=== PATIENT | male | born 1945 | race Caucasian/White ===

== ENCOUNTER 2021-07-10 11:17 | Outpatient (CLI) | payer MEDICARE, OTHER | END 2021-07-10 11:18 | disposition home or self-care (01) | LOC: BICRAD 11:17 | PROVIDERS: ATTEND Internal Medicine Cardiovascular Disease | DX: J44.9 Chronic obstructive pulmonary disease, unspecified (principal); J90 Pleural effusion, not elsewhere classified | CPT/HCPCS: 71046 ==

== ENCOUNTER 2023-12-07 12:48 | Day surgery (SDC) | payer MEDICARE, OTHER ==
[2023-12-04 12:35] VITALS: BMI 27.9
[2023-12-07] MEDS ORDERED: Etomidate 40 MG (20 mL) VIAL ONE (13:32)
[2023-12-07 13:44] LABS: #Basophils 0.2 thou/uL (0.0-0.2); #Eosinphils 0.3 thou/uL (0.0-0.7); #Monocytes 0.7 thou/uL (0.11-0.59); #Neutrophils 8.2 thou/uL (1.40-6.50); %Basophils 1.4 % (0.0-1.0); %Eosinophils 2.9 % (0.0-10.0); %Lymphocytes 12.3 % (21.0-51.0); %Monocytes 6.6 % (0.0-10.0); %Neutrophils 76.2 % (42.0-75.0); Hematocrit 33.1 % (42.0-52.0); Hemoglobin 9.4 g/dL (14.0-18.0); Mean Corpuscular HGB CONC 28.4 g/dL (32.0-36.0); Mean Corpuscular Hemoglobin 23.3 pg (27.0-31.0); Mean Corpuscular Volume 81.9 fl (78.0-98.0); Mean Platelet Volume 11.8 fL (7.4-10.4); Platelet Count 181 10x3/uL (130-400); RBC Distribution Width 18.8 % (11.5-14.5); Red Blood Cell (RBC) Count 4.04 mill/uL (4.70-6.10); White Blood Cell (WBC) Count 10.7 10x3/uL (4.8-10.8)
[2023-12-07] MEDS ORDERED: PROPOFOL 200 MG/20 ML VIAL ONE (13:53)
[2023-12-07 13:56] LABS: INR-International Normal Ratio 1.5; Prothrombin Time 18.5 sec (12.0-14.7)
[2023-12-07 13:57] LABS: PTT 59.1 sec (22.9-36.1)
[2023-12-07 14:06] LABS: Anion Gap 14 mmol/L (10-20); BUN (Urea Nitrogen) 36 mg/dL (8.4-25.7); Calc. Creatinine Clearance 53 mL/min (70-130); Carbon Dioxide 24 mmol/L (23-31); Chloride 101 mmol/L (98-107); Estimated GFR 49; Glucose 146 mg/dL (83-110); Potassium 3.5 mmol/L (3.5-5.1); Sodium 135 mmol/L (136-145)
[2023-12-07 14:09] LABS: Anisocytosis SLIGHT = 6-15 cells HPF (0-5); CellaVision Operator ID LAB.MJL; Hypochromia SLIGHT = 6-15 cells HPF (0-5); Ovalocytes SLIGHT = 2-5 cells HPF (0-1); Platelet Adequacy Comment Platelets Normal; Poikilocytosis SLIGHT = 6-15 cells HPF (0-5); Polychromasia MODERATE = 3-4 cells HPF (0-2); Tear Drops SLIGHT = 2-5 cells HPF (0-1)
== END 2023-12-07 15:00 | disposition home or self-care (01) ==
LOC: SDC 12:48
PROVIDERS: ATTEND Internal Medicine Cardiovascular Disease
PROC: B24BZZZ Ultrasonography of Heart with Aorta (ICD-10-PCS; principal; 2023-12-07)
DX: I48.0 Paroxysmal atrial fibrillation (principal); I25.10 Atherosclerotic heart disease of native coronary artery without angina pectoris; I12.9 Hypertensive chronic kidney disease with stage 1 through stage 4 chronic kidney disease, or unspecified chronic kidney disease; N18.30 Chronic kidney disease, stage 3 unspecified; I31.1 Chronic constrictive pericarditis; E11.9 Type 2 diabetes mellitus without complications; J44.9 Chronic obstructive pulmonary disease, unspecified; Z79.82 Long term (current) use of aspirin; Z79.899 Other long term (current) drug therapy; Z79.84 Long term (current) use of oral hypoglycemic drugs; Z79.4 Long term (current) use of insulin; Z79.01 Long term (current) use of anticoagulants; Z86.16 Personal history of COVID-19
CPT/HCPCS: 36416; 80048; 85025; 85610; 85730; 92960; 93005; 93010; 93312; J1642; J2704

== ENCOUNTER 2024-01-22 | Day surgery (SDC) | payer MEDICARE, OTHER | END 2024-01-22 10:58 | disposition home or self-care (01) | PROC: 5A2204Z Restoration of Cardiac Rhythm, Single (ICD-10-PCS; principal; 2024-01-22) | PROC: B246ZZ4 Ultrasonography of Right and Left Heart, Transesophageal (ICD-10-PCS; 2024-01-22) | DX: I48.20 Chronic atrial fibrillation, unspecified (principal) ==

== ENCOUNTER 2024-05-05 12:00 | Inpatient (IN) | payer MEDICARE ==
[2024-05-05 12:20] VITALS: BMI 26.2
[2024-05-05 13:10] LABS: Hematocrit 37.6 % (38.8-50.0); Hemoglobin 11.9 g/dL (13.5-17.5); Mean Corpuscular HGB CONC 31.6 g/dL (32.0-36.0); Mean Corpuscular Hemoglobin 28.9 pg (27.0-33.0); Mean Corpuscular Volume 91.3 fL (81.2-95.1); Mean Platelet Volume 12.9 fL (7.4-10.4); Platelet Count 128 10x3/uL (150-450); RBC Distribution Width 15.9 % (11.5-14.5); Red Blood Cell (RBC) Count 4.12 10x6/uL (4.32-5.72); White Blood Cell (WBC) Count 9.9 10x3/uL (3.5-10.5)
[2024-05-05 13:13] LABS: Bilirubin Neg (Negative); Blood, Urine 150 (Negative); Clarity Clear (Clear); Glucose, Urine (Dipstick) >=1000 mg/dL (Negative); Ketone, Urine Negative (Negative); Leukocyte Negative (Negative); Nitrite Negative (Negative); Protein, Urine (Dipstick) 100 mg/dl (Neg-Trace); pH, Urine 6.5 (5.0-9.0)
[2024-05-05 13:21] LABS: INR-International Normal Ratio 1.3; PTT 33.9 sec (22.0-33.0); Prothrombin Time 13.8 sec (9.5-12.1)
[2024-05-05 13:23] LABS: Anion Gap 14 mmol/L (10-20); BUN (Urea Nitrogen) 30 mg/dL (8.4-25.7); Calc. Creatinine Clearance 50 mL/min (70-130); Calcium 9.1 mg/dL (7.8-10.44); Carbon Dioxide 27 mmol/L (23-31); Chloride 101 mmol/L (98-107); Estimated GFR 49; Glucose 163 mg/dL (83-110); Potassium 3.2 mmol/L (3.5-5.1); Sodium 139 mmol/L (136-145)
[2024-05-11] MEDS ORDERED: Ondansetron PF 4 MG/2 ML Vial ONE (14:07)
[2024-05-11] MEDS ORDERED: Rocuronium Bromide 10 MG/ML (10ML VIAL) ONE (14:07)
[2024-05-11] MEDS ORDERED: Dexamethasone 4 mg/ml Vial ONE (14:07)
[2024-05-11] MEDS ORDERED: fentaNYL 50 mcg/mL 1 mL Vial ONE ×3 (14:09→17:03)
[2024-05-11] MEDS ORDERED: PROPOFOL 20 ML ONE (14:09)
[2024-05-11] MEDS ORDERED: CEFAZOLIN 1 GM VIAL ONE (14:12)
[2024-05-11] MEDS ORDERED: Protamine Sulfate 50 MG/5 ML VIAL ONE (14:13)
[2024-05-11] MEDS ORDERED: Heparin 10,000 UNITS/ 10 ML VIAL ONE (14:13)
[2024-05-11] MEDS ORDERED: Lidocaine 1% PF 5 ML VIAL ONE (14:56)
[2024-05-11] MEDS ORDERED: Phenylephrine 10 MG/ML VIAL ONE (15:19)
[2024-05-11] MEDS ORDERED: SUGAMMADEX SODIUM 200 MG/2 ML VIAL ONE (16:20)
== END 2024-05-11 19:35 | disposition home or self-care (01) | DRG 274 ==
LOC: SURG A 05-11 11:11 → EDSTATUS 05-11 12:00
PROVIDERS: ADMIT Internal Medicine Cardiovascular Disease; ATTEND Internal Medicine Cardiovascular Disease
PROC: 02L73DK Occlusion of Left Atrial Appendage with Intraluminal Device, Percutaneous Approach (ICD-10-PCS; principal; 2024-05-11)
PROC: B246ZZ4 Ultrasonography of Right and Left Heart, Transesophageal (ICD-10-PCS; 2024-05-11)
DX: I48.19 Other persistent atrial fibrillation (principal); Z00.6 Encounter for examination for normal comparison and control in clinical research program; I25.10 Atherosclerotic heart disease of native coronary artery without angina pectoris; E11.9 Type 2 diabetes mellitus without complications; Z79.01 Long term (current) use of anticoagulants; Z79.899 Other long term (current) drug therapy; I11.0 Hypertensive heart disease with heart failure; I50.9 Heart failure, unspecified; Z98.890 Other specified postprocedural states
CPT/HCPCS: 33340; 36416; 80048; 81003; 85027; 85347; 85610; 85730; 86850; 86900; 86901; 93306; 93312; C1759; C1760; C1894; J0690; J1100; J1644; J2371; J2405; J2704; J2720; J3010